=== PATIENT | male | born 1965 | race Caucasian/White ===

== ENCOUNTER 2022-09-25 07:14 | Day surgery (SDC) | payer OTHER ==
[~2022-09-25] VITALS: Ht 160 cm; Wt 72.0 kg
[~2022-09-25 07:14] MED LIST: SODIUM CHLORIDE 0.9% 1,000 ML IV ONE; SODIUM CHLORIDE 0.9% 1,000 ML ONE
[2022-09-25 07:38] LABS: COVID AG,FIA SOURCE NASAL SWAB
[2022-09-25] MEDS ORDERED: INSLAN SQ (08:06)
[2022-09-25] MEDS ORDERED: METF-1211 PO (08:06)
[2022-09-25] MEDS ORDERED: PANT-31 PO (08:06)
[2022-09-25 08:31] LABS: GLUCOMETER DEV NAME(LOC) SDS.; GLUCOSE,POINT OF CARE 220 MG/DL (70-110)
[2022-09-25] MEDS ORDERED: LIDOCAINE/PF 2% 5 ML SYRINGE IVP ONE (12:00)
[2022-09-25] MEDS ORDERED: PROPOFOL 1% 20 ML VIAL IVP ONE (12:00)
== END 2022-09-25 11:40 | disposition home or self-care (01) ==
LOC: SURGERY 07:14
PROVIDERS: ATTEND Internal Medicine Gastroenterology
DX: K64.0 First degree hemorrhoids (principal); K21.9 Gastro-esophageal reflux disease without esophagitis; E11.9 Type 2 diabetes mellitus without complications; K29.70 Gastritis, unspecified, without bleeding; Z79.899 Other long term (current) drug therapy; Z20.822 Contact with and (suspected) exposure to COVID-19; Z98.890 Other specified postprocedural states; K59.00 Constipation, unspecified
CPT/HCPCS: 45378; 43239; 87426; 88305; 82962; C1769; J2704; J3490; J7030; C9803